=== PATIENT | male | born 1960 | race Caucasian/White ===

== ENCOUNTER 2024-07-20 21:22 | Inpatient (IN) | payer MEDICARE, MEDICAID, SELFPAY ==
[2024-07-20 21:26] VITALS: BP 136/80; PULSE 112; RESP 22; TEMP 38.4; O2SAT 92
[2024-07-20 21:30] VITALS: BP 127/89; PULSE 103; RESP 28; TEMP 36.7; O2SAT 94
--- NOTE | 2024-07-20 21:30 | EKG_ITS ---
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[id number] Requested By: Medhat Whittaker Order Number: [id number] Reading MD: Medhat Whittaker Measurements Intervals [place] Rate: 114 P: [place]: QRS: 76 QRSD: 110 T: 85 QT: 343 QTc: 474 Interpretive Statements ATRIAL FLUTTER/TACHYCARDIA WITH RAPID VENTRICULAR RESPONSE WITH ABERRANT CONDUCTION OR VENTRICULAR PREMATURE COMPLEXES NONSPECIFIC T-WAVE ABNORMALITY ABNORMAL RHYTHM ECG Compared to ECG 06/21/2024 11:38:35 Ventricular premature complex(es) now present Aberrant conduction of supraventricular beat(s) now present T-wave abnormality now present Myocardial infarct finding no longer present /store/S0/[id number]/[id number].pdf
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
--- NOTE | 2024-07-20 21:31 | XR_ITS ---
Examination: AP chest single view Technique one AP portable upright chest single view Exam date and time: July 20, 2024 10:26 PM Comparison June 17, 2024 Indications: Sepsis protocol Findings: Prominent left lung pneumonia Mild enlargement cardiac contour with moderate vascular congestion Calcified granuloma right lower lobe Impression: Significant left lung pneumonia
[2024-07-20 21:34] VITALS: BMI 37.0
[2024-07-20 22:19] LABS: Collection Type, Urine Clean Catch; Squamous Epithelial Cell,Urine 0 /hpf (0-5)
[2024-07-20 22:33] LABS: Lactate (Lactic Acid) 1.7 mMol/L (0.4-2.0)
[2024-07-20 22:37] LABS: Bacteria,Urine 1+; Bilirubin,Urine 2+ (Negative); Blood,Urine Negative (Negative); Clarity,Urine Turbid (Clear/Hazy); Color,Urine Drk-Yellow (Lt Yel-Yel); Glucose, Urine Negative (Negative); Ketones,Urine Negative (Negative); Leukocyte Esterase,Urine Negative (Negative); Nitrite,Urine Negative (Negative); PH,Urine 6.5 (5.0-7.0); Protein,Urine 1+ (Neg - Trace); RBC,Urine 3 /hpf (0-3); Specific Gravity,Urine 1.029 (1.001-1.035); WBC,Urine 3 /hpf (0-5)
[2024-07-20 22:38] LABS: Basophils # (Auto) 0.1 Thou/mm3 (0.0-0.2); Basophils % (Auto) 0 % (0-2.5); Eosinophils % (Auto) 0 % (0-10); Hemoglobin 13.9 g/dL (13.5-16.0); Immature Granulocytes % (Auto) 1 % (0-0); Immature Granulocytes Auto 0.16 Thou/mm3 (0.00-0.00); Lymphocytes # (Auto) 0.6 Thou/mm3 (1.0-4.8); Lymphocytes % (Auto) 4 % (10-50); Mean Corpuscular HGB Conc 33.1 g/dl (31.0-37.0); Mean Corpuscular Hemoglobin 26.4 pg (25.0-35.0); Mean Corpuscular Volume 80 fL (80-100); Monocytes # (Auto) 1.3 Thou/mm3 (0.0-0.8); Monocytes % (Auto) 7 % (0-12); Neutrophils # (Auto) 15.4 Thou/mm3 (1.8-7.7); Neutrophils % (Auto) 88 % (37-80); Nucleated Red Blood Cell % 0 /100 WBC (0); Platelet Count 171 Thou/mm3 (140-440); RDW Standard Deviation 46.1 fL (35.1-43.9); Red Blood Count 5.27 Miln/mm3 (4.50-5.90)
[2024-07-20 22:39] VITALS: PULSE 122; RESP 26; O2SAT 94; BMI 36.9
[2024-07-20 22:39] LABS: White Blood Count 17.6 Thou/mm3 (3.8-10.6)
[2024-07-20 22:49] LABS: INR 1.4 (0.9-1.3); Partial Thromboplastin Time 29.1 Seconds (22.0-36.0); Prothrombin Time 14.5 Seconds (9.0-12.2)
[2024-07-20 22:55] LABS: B-Type Natriuretic Peptide 424 pg/mL (0-100)
[2024-07-20 23:06] VITALS: PULSE 116; RESP 30; O2SAT 86
[2024-07-20 23:11] LABS: Alanine Aminotransferase 67 U/L (10-49); Albumin, Serum 3.6 gm/dL (3.4-4.8); Albumin/Globulin Ratio 1.4 (1.2-2.2); Alkaline Phosphatase 231 U/L (46-116); Anion Gap 7 (7-16); Aspartate Amino Transferase 87 U/L (0-34); BUN/Creatinine Ratio 32 Ratio (12-20); Bilirubin,Total 4.5 mg/dL (0.3-1.2); Blood Urea Nitrogen 29 mg/dL (9-23); Calcium 9.3 mg/dL (8.3-10.6); Calcium (Corrected) 9.6 mg/dL (8.5-10.1); Carbon Dioxide 25.9 mMol/L (20.0-31.0); Chloride 98 mMol/L (98-107); Creatinine (Component) 0.9 mg/dL (0.6-1.3); Estimated Creatinine Clearance 185.1 mL/min (>60); Globulin 2.6 gm/dL (2.3-3.5); Glucose 138 mg/dL (74-106); Lipase 39 U/L (12-53); Osmolality,Calculated 270 (275-295); Phosphorous 2.8 mg/dL (2.4-5.1); Potassium 3.8 mMol/L (3.4-5.1); Procalcitonin 1.42 ng/ml (0.0-0.49); Sodium 131 mMol/L (136-145); Total Protein 6.2 gm/dL (5.7-8.2); Troponin I 0.037 ng/mL (0.0-0.045); eGFR > 60 See Note
[2024-07-20] MEDS: cefTRIAXone/D5w 1gm IV premix 50 ML IV (23:19)
[2024-07-21] VITALS (17 sets, daily range): BP systolic 107–151; BP diastolic 62–99; PULSE 80–124; RESP 18–98; TEMP 36.7–37.6; O2SAT 90–97
[2024-07-21] MEDS: ALBUTEROL/IPRATROPIUM (Duoneb) RT SOL 3 ML NEBU INH (00:10)
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
--- NOTE | 2024-07-21 00:44 | PC.NURSE ---
since pt has been extreamly loud and demanding. Pt asking for food befor he was befor any treatment yelling EAT EAT EAT EAT PT informed that he needs to wait until we are finished treating him.. pt then startes yelling I'm starving to louder and louder for about 2 min. Pt was given sandwich, chips and juice. When he was finished he just threw his chips oand juice boxes etc on the floor.Shotrtly after pt puss ocegen out .and since has been non compliant with everything,
[2024-07-21 02:12] LABS: LDH (Lactate Dehydrogenase) 263 U/L (120-246)
[2024-07-21] MEDS: SODIUM CHLORIDE RT 10% 15 ML NEBU 5 ML INH (02:38)
[2024-07-21] MEDS: APIXABAN 2.5 MG TABLET 5 MG PO ×2 (02:49→21:34)
[2024-07-21] MEDS: AZITHROMYCIN 250 MG TABLET 500 MG PO (02:50)
--- NOTE | 2024-07-21 02:52 | PC.RT ---
Sputum culture collected and sent to lab.
[2024-07-21] MEDS: PIPER/TAZO 3.375 GM 3.375 GM/50 ML BAG IV ×3 (04:30→21:37)
[2024-07-21 04:45] LABS: Basophils # (Auto) 0.1 Thou/mm3 (0.0-0.2); Basophils % (Auto) 0 % (0-2.5); Eosinophils % (Auto) 0 % (0-10); Hematocrit 41.5 % (41.0-53.0); Hemoglobin 13.1 g/dL (13.5-16.0); Immature Granulocytes % (Auto) 1 % (0-0); Immature Granulocytes Auto 0.18 Thou/mm3 (0.00-0.00); Lymphocytes # (Auto) 0.9 Thou/mm3 (1.0-4.8); Lymphocytes % (Auto) 5 % (10-50); Mean Corpuscular HGB Conc 31.6 g/dl (31.0-37.0); Mean Corpuscular Hemoglobin 25.9 pg (25.0-35.0); Mean Corpuscular Volume 82 fL (80-100); Monocytes # (Auto) 1.5 Thou/mm3 (0.0-0.8); Monocytes % (Auto) 9 % (0-12); Neutrophils # (Auto) 14.3 Thou/mm3 (1.8-7.7); Neutrophils % (Auto) 84 % (37-80); Nucleated Red Blood Cell % 0 /100 WBC (0); Platelet Count 176 Thou/mm3 (140-440); RDW Standard Deviation 47.8 fL (35.1-43.9); Red Blood Count 5.06 Miln/mm3 (4.50-5.90)
[2024-07-21] MEDS: AMIODARONE HCL 200 MG TABLET PO ×2 (04:55→21:50)
[2024-07-21 05:14] LABS: Alanine Aminotransferase 62 U/L (10-49); Albumin, Serum 3.4 gm/dL (3.4-4.8); Albumin/Globulin Ratio 1.4 (1.2-2.2); Alkaline Phosphatase 222 U/L (46-116); Anion Gap 6 (7-16); Aspartate Amino Transferase 69 U/L (0-34); BUN/Creatinine Ratio 28 Ratio (12-20); Blood Urea Nitrogen 25 mg/dL (9-23); Calcium 8.9 mg/dL (8.3-10.6); Calcium (Corrected) 9.4 mg/dL (8.5-10.1); Carbon Dioxide 28.2 mMol/L (20.0-31.0); Chloride 97 mMol/L (98-107); Cholesterol 73 mg/dL (132-200); Creatinine (Component) 0.9 mg/dL (0.6-1.3); Estimated Creatinine Clearance 185.1 mL/min (>60); Globulin 2.5 gm/dL (2.3-3.5); Glucose 168 mg/dL (74-106); Magnesium 1.8 mg/dL (1.6-2.6); Osmolality,Calculated 271 (275-295); Potassium 3.8 mMol/L (3.4-5.1); Sodium 131 mMol/L (136-145); Total Protein 5.9 gm/dL (5.7-8.2); Triglycerides 99 mg/dL (30-150); eGFR > 60 See Note
[2024-07-21 05:15] LABS: Bilirubin,Total 3.3 mg/dL (0.3-1.2); Cardiac Risk Estimate 5.6 RATIO (4.0-6.7); HDL Cholesterol 13 mg/dL (40-60); LDL Cholesterol,Calculated 40 mg/dL (0-130)
[2024-07-21] MEDS: DOXYCYCLINE INJ 100 MG in SODIUM CHLORIDE 0.9% (P) 100 ML IV ×2 (07:07→21:35)
[2024-07-21] MEDS: INSULIN LISPRO (AdmeLOG) 1 UNIT/0.01 ML UNIT SC (07:45)
--- NOTE | 2024-07-21 08:04 | PC.NURSE ---
pt will not stay in bed. Pt does not leave chest leads on. Pt is compliant at first and then removes o2 sat, b/p cuff, leads, spits in room, and urinated on floor. Pt asked to not do these things, and then he does them again.
[2024-07-21] MEDS: FOLIC ACID 1 MG TABLET PO ×2 (08:27→21:34)
[2024-07-21] MEDS: FUROSEMIDE INJ 10 MG/ML 4ML VIAL 40 MG IV (08:27)
[2024-07-21] MEDS: TAMSULOSIN HCL 0.4 MG CAPSULE PO (08:28)
[2024-07-21] MEDS: THIAMINE 100 MG TABLET PO ×2 (08:28→21:35)
[2024-07-21] MEDS: SACUBITRIL 24 MG/VALSARTAN 26 MG TABLET 1 TAB PO ×2 (08:28→21:35)
[2024-07-21] MEDS: PANTOPRAZOLE INJ 40 MG VIAL IVP (08:28)
--- NOTE | 2024-07-21 10:10 | XR_ITS ---
Examination: Abdomen sonogram, Limited Date and time of exam: July 21, 2024 at 1307 hours INDICATIONS: Elevated liver enzymes on laboratory examination July 20, 2024 Technique: Real-time brunner scale transabdominal sonographic images of the upper abdomen obtained. Findings: Negative for gallstones Gallbladder wall is thickened 0.9 cm with edema Common bile duct 0.4 cm Pancreatic head 3.0 cm Liver 19.0 cm irregular contour no focal liver lesions Normal hepatopedal portal venous flow Patent IVC IMPRESSION: Acute acalculous cholecystitis, consider HIDA scan or MRCP follow-up for confirmation Moderate hepatomegaly
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
[2024-07-21 11:41] LABS: Hepatitis A Antibody IgM Non Reactive (Non React); Hepatitis B Core Antibody IgM Non Reactive (Non React); Hepatitis B Surface Antigen Non Reactive (Non React); Hepatitis C Antibody Reactive (Non React)
[2024-07-21] MEDS: DAPAGLIFLOZIN PROPANEDIOL 5 MG TABLET 10 MG PO (12:10)
[2024-07-21] MEDS: POTASSIUM CHLORIDE 20 mEq TABCR PO (14:40)
[2024-07-21] MEDS: Magnesium Sulfate 4 GM Ivpb 4 GM/50 ML BAG IV (15:43)
[2024-07-21] MEDS: BUMETANIDE INJ 20 MG in CONTAINER,EMPTY 50 ML 1 BAG 4 MG IV (17:00)
[2024-07-21] MEDS: ACETAMINOPHEN 325 MG TABLET 650 MG PO (19:50)
[2024-07-22] VITALS (11 sets, daily range): BP systolic 92–118; BP diastolic 62–84; PULSE 91–153; RESP 17–96; TEMP 36.1–36.8; O2SAT 92–95; BMI 37.5
--- NOTE | 2024-07-22 | PC.NURSE ---
patient refusing to wear tele, oxygen monitor, and oxygen
[2024-07-22] MEDS: LORazepam 0.5 MG TABLET 2 MG PO (00:17)
--- NOTE | 2024-07-22 00:32 | PC.NURSE ---
unable to do med recs, patient unsure of the names of his medications.
--- NOTE | 2024-07-22 04:57 | PC.NURSE ---
patient refusing to wear tele, oxygen monitor, and oxygen
--- NOTE | 2024-07-22 04:57 | PC.NURSE ---
patient continues to urinate on the floor. patient not compliant with strict juliano. patient spitting on the floor. patient educated to use blue bag and urinate into urinal.
[2024-07-22] MEDS: PIPER/TAZO 3.375 GM 3.375 GM/50 ML BAG IV ×3 (05:23→21:19)
[2024-07-22 05:49] LABS: Basophils # (Auto) 0.1 Thou/mm3 (0.0-0.2); Basophils % (Auto) 1 % (0-2.5); Eosinophils # (Auto) 0.2 Thou/mm3 (0.0-0.5); Eosinophils % (Auto) 2 % (0-10); Hematocrit 45.3 % (41.0-53.0); Hemoglobin 14.6 g/dL (13.5-16.0); Immature Granulocytes % (Auto) 2 % (0-0); Immature Granulocytes Auto 0.25 Thou/mm3 (0.00-0.00); Lymphocytes % (Auto) 9 % (10-50); Mean Corpuscular HGB Conc 32.2 g/dl (31.0-37.0); Mean Corpuscular Hemoglobin 25.8 pg (25.0-35.0); Mean Corpuscular Volume 80 fL (80-100); Monocytes # (Auto) 1.4 Thou/mm3 (0.0-0.8); Monocytes % (Auto) 13 % (0-12); Neutrophils # (Auto) 7.8 Thou/mm3 (1.8-7.7); Neutrophils % (Auto) 73 % (37-80); Nucleated Red Blood Cell % 0 /100 WBC (0); Platelet Count 240 Thou/mm3 (140-440); RDW Standard Deviation 46.6 fL (35.1-43.9); Red Blood Count 5.65 Miln/mm3 (4.50-5.90); White Blood Count 10.7 Thou/mm3 (3.8-10.6)
[2024-07-22 06:12] LABS: INR 1.3 (0.9-1.3); Prothrombin Time 14.4 Seconds (9.0-12.2)
[2024-07-22 06:25] LABS: Alanine Aminotransferase 52 U/L (10-49); Albumin, Serum 3.6 gm/dL (3.4-4.8); Albumin/Globulin Ratio 1.2 (1.2-2.2); Alkaline Phosphatase 207 U/L (46-116); Anion Gap 8 (7-16); Aspartate Amino Transferase 46 U/L (0-34); BUN/Creatinine Ratio 21 Ratio (12-20); Blood Urea Nitrogen 19 mg/dL (9-23); Calcium (Corrected) 9.3 mg/dL (8.5-10.1); Carbon Dioxide 35.8 mMol/L (20.0-31.0); Chloride 94 mMol/L (98-107); Creatinine (Component) 0.9 mg/dL (0.6-1.3); Estimated Creatinine Clearance 115.3 mL/min (>60); Globulin 2.9 gm/dL (2.3-3.5); Glucose 146 mg/dL (74-106); Magnesium 1.6 mg/dL (1.6-2.6); Osmolality,Calculated 280 (275-295); Phosphorous 3.8 mg/dL (2.4-5.1); Potassium 2.8 mMol/L (3.4-5.1); Sodium 138 mMol/L (136-145); Total Protein 6.5 gm/dL (5.7-8.2); eGFR > 60 See Note
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
[2024-07-22] MEDS: POTASSIUM CHLORIDE 20 mEq TABCR 40 MEQ PO (07:57)
[2024-07-22] MEDS: INSULIN LISPRO (AdmeLOG) 1 UNIT/0.01 ML UNIT SC ×4 (07:57→20:20)
[2024-07-22] MEDS: POTASSIUM CHL 10 mEq IVPB 10 MEQ/100 ML BAG 50 MEQ IV ×2 (07:58→12:32)
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
[2024-07-22] MEDS: THIAMINE 100 MG TABLET PO ×2 (09:20→20:18)
[2024-07-22] MEDS: FOLIC ACID 1 MG TABLET PO ×2 (09:20→20:18)
[2024-07-22] MEDS: APIXABAN 2.5 MG TABLET 5 MG PO ×2 (09:20→21:19)
[2024-07-22] MEDS: PANTOPRAZOLE INJ 40 MG VIAL IVP (09:20)
[2024-07-22] MEDS: ALBUMIN HUMAN 25% IVPB 25 GM/100 ML BTL IV (09:20)
[2024-07-22] MEDS: DAPAGLIFLOZIN PROPANEDIOL 5 MG TABLET 10 MG PO (09:20)
[2024-07-22] MEDS: TAMSULOSIN HCL 0.4 MG CAPSULE PO (09:20)
[2024-07-22] MEDS: SACUBITRIL 24 MG/VALSARTAN 26 MG TABLET 1 TAB PO ×2 (09:21→20:18)
[2024-07-22] MEDS: AMIODARONE HCL 200 MG TABLET PO ×2 (09:21→20:18)
[2024-07-22] MEDS: DOXYCYCLINE INJ 100 MG in SODIUM CHLORIDE 0.9% (P) 100 ML IV ×2 (10:04→20:19)
[2024-07-22] MEDS: POTASSIUM CHL 10 mEq IVPB 10 MEQ/100 ML BAG 75 MEQ IV (10:05)
--- NOTE | 2024-07-22 10:30 | PC.SS ---
SS met with patient at bedside to complete initial assessment, however patient informed SS to return. Patient possibly might leave AMA, informed SS his daughter will provide transportation.
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
--- NOTE | 2024-07-22 14:16 | XR_ITS ---
Examination: Abdomen sonogram, Limited Date and time of exam: July 22, 2024 0821 hours INDICATIONS: Cirrhosis, increasing ascites and abdominal distention this week Technique: Real-time brunner scale transabdominal sonographic images of the upper abdomen obtained. Findings: Minimal ascitic fluid IMPRESSION: Minimal ascitic fluid
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
[2024-07-22] MEDS: BUMETANIDE INJ 0.25 MG/ML VIAL 4 ML 2 MG IVP (20:19)
[2024-07-22] MEDS: LORazepam 0.5 MG TABLET PO (21:58)
[2024-07-23] VITALS (7 sets, daily range): BP systolic 94–122; BP diastolic 67–100; PULSE 93–116; RESP 17–92; TEMP 36.2–36.7; O2SAT 91–94; BMI 35.4
[2024-07-23] MEDS: LORazepam 0.5 MG TABLET PO (03:47)
[2024-07-23] MEDS: PIPER/TAZO 3.375 GM 3.375 GM/50 ML BAG IV (05:23)
[2024-07-23 05:49] LABS: Basophils % (Auto) 0 % (0-2.5); Eosinophils # (Auto) 0.3 Thou/mm3 (0.0-0.5); Eosinophils % (Auto) 3 % (0-10); Hematocrit 43.9 % (41.0-53.0); Immature Granulocytes % (Auto) 4 % (0-0); Immature Granulocytes Auto 0.39 Thou/mm3 (0.00-0.00); Lymphocytes # (Auto) 1.3 Thou/mm3 (1.0-4.8); Lymphocytes % (Auto) 14 % (10-50); Mean Corpuscular HGB Conc 31.9 g/dl (31.0-37.0); Mean Corpuscular Hemoglobin 25.9 pg (25.0-35.0); Mean Corpuscular Volume 81 fL (80-100); Monocytes % (Auto) 11 % (0-12); Neutrophils # (Auto) 6.6 Thou/mm3 (1.8-7.7); Neutrophils % (Auto) 69 % (37-80); Nucleated Red Blood Cell % 0 /100 WBC (0); Platelet Count 264 Thou/mm3 (140-440); RDW Standard Deviation 47.6 fL (35.1-43.9); White Blood Count 9.7 Thou/mm3 (3.8-10.6)
[2024-07-23 06:22] LABS: Alanine Aminotransferase 47 U/L (10-49); Albumin, Serum 3.6 gm/dL (3.4-4.8); Albumin/Globulin Ratio 1.3 (1.2-2.2); Alkaline Phosphatase 206 U/L (46-116); Anion Gap 7 (7-16); Aspartate Amino Transferase 52 U/L (0-34); BUN/Creatinine Ratio 20 Ratio (12-20); Bilirubin,Total 2.1 mg/dL (0.3-1.2); Blood Urea Nitrogen 20 mg/dL (9-23); Calcium 8.7 mg/dL (8.3-10.6); Chloride 92 mMol/L (98-107); Estimated Creatinine Clearance 100.4 mL/min (>60); Globulin 2.8 gm/dL (2.3-3.5); Glucose 188 mg/dL (74-106); Magnesium 1.4 mg/dL (1.6-2.6); Osmolality,Calculated 279 (275-295); Phosphorous 4.1 mg/dL (2.4-5.1); Sodium 136 mMol/L (136-145); Total Protein 6.4 gm/dL (5.7-8.2); eGFR > 60 See Note
[2024-07-23] MEDS: INSULIN LISPRO (AdmeLOG) 1 UNIT/0.01 ML UNIT SC (07:54)
[2024-07-23] MEDS: DAPAGLIFLOZIN PROPANEDIOL 5 MG TABLET 10 MG PO (08:12)
[2024-07-23] MEDS: BUMETANIDE INJ 0.25 MG/ML VIAL 4 ML 2 MG IVP (08:13)
[2024-07-23] MEDS: PANTOPRAZOLE INJ 40 MG VIAL IVP (08:13)
[2024-07-23] MEDS: AMIODARONE HCL 200 MG TABLET PO (08:13)
[2024-07-23] MEDS: FOLIC ACID 1 MG TABLET PO (08:13)
[2024-07-23] MEDS: SACUBITRIL 24 MG/VALSARTAN 26 MG TABLET 1 TAB PO (08:13)
[2024-07-23] MEDS: THIAMINE 100 MG TABLET PO (08:14)
[2024-07-23] MEDS: TAMSULOSIN HCL 0.4 MG CAPSULE PO (08:14)
[2024-07-23] MEDS: DOXYCYCLINE INJ 100 MG in SODIUM CHLORIDE 0.9% (P) 100 ML IV (08:14)
[2024-07-23] MEDS: LORazepam 0.5 MG TABLET 1 MG PO (08:32)
[2024-07-23] MEDS: POTASSIUM CHLORIDE 20 mEq TABCR 40 MEQ PO (09:50)
[2024-07-23] MEDS: Magnesium Sulfate 4 GM Ivpb 4 GM/50 ML BAG IV (09:50)
[2024-07-23] MEDS: APIXABAN 2.5 MG TABLET 5 MG PO (09:50)
[2024-07-23] MEDS: ALBUMIN HUMAN 25% IVPB 25 GM/100 ML BTL IV (09:51)
--- NOTE | 2024-07-23 10:18 | PD.IMPROG ---
Documentation for date of: 07/23/24 Subjective Subjective Interval history: pt comfortable aflutter HR 110 on eliquis continue antifailure meds Exam Vital Signs Temp Pulse Resp BP Pulse Ox O2 Del Method O2 Flow Rate 98.0 F 114 H 19 122/100 H 91 L Room Air 4 07/23/24 08:00 07/23/24 08:13 07/23/24 08:00 07/23/24 08:13 07/23/24 08:00 07/23/24 08:00 07/22/24 16:00 Routine HEENT Exam Head: Present normocephalic and atraumatic Eye: Present EOMI and PERRL ENT: Present mucous membranes moist Routine Neck Exam Neck: Present supple and trachea midline Routine Respiratory Exam Respiratory: Present chest non-tender, lungs clear, normal breath sounds and no resp distress Routine Cardiovascular Exam Cardiovascular: Present RRR Routine Abdominal Exam Abdominal: Present soft and normoactive bowel sounds Routine Extremities Exam Extremities: Present full ROM Routine Skin Exam Skin: Present intact, dry and warm Routine Neurological Exam Neurological: Present alert, oriented X3 and CN II-XII intact Routine Psychiatric Exam Psychiatric: Present normal affect and normal thought process Objective Labs 07/23/24 05:00 07/23/24 05:00 Labs: Laboratory Results - last 24 hr 07/23/24 05:00 WBC 9.7 RBC 5.40 Hgb 14.0 Hct 43.9 MCV 81 MCH 25.9 MCHC 31.9 RDW Std Deviation 47.6 H Plt Count 264 Neut % (Auto) 69 Lymph % (Auto) 14 [place] % (Auto) 11 Eos % (Auto) 3 Baso % (Auto) 0 Neut # (Auto) 6.6 Lymph # (Auto) 1.3 [place] # (Auto) 1.0 H Eos # (Auto) 0.3 Baso # (Auto) 0.0 Immature Gran # (Auto) 0.39 H Absolute Nucleated RBC 0.00 Immature Gran % 4 H Nucleated RBC % 0 Sodium 136 Potassium 3.0 L Chloride 92 L Carbon Dioxide 37.0 H Anion Gap 7 BUN 20 Creatinine 1.0 Estim Creat Clear Calc 100.4 eGFR > 60 BUN/Creatinine Ratio 20 Glucose 188 H Calculated Osmolality 279 Calcium 8.7 Corrected Calcium 9.0 Phosphorus 4.1 Magnesium 1.4 L Total Bilirubin 2.1 H D AST 52 H ALT 47 Alkaline Phosphatase 206 H Total Protein 6.4 Albumin 3.6 Globulin 2.8 Albumin/Globulin Ratio 1.3 Assessment & Plan A&P Narrative EKG shows aflutter pt was diuresed currently on entristo agree with treatment continue anticoagulation Time Spent With Patient Time: Total time spent is greater than 50% in coordination of care (as documented) at patient's floor/unit and/or counseling patient:
--- NOTE | 2024-07-23 11:39 | PC.SS ---
Initial assessment: This is 64 year old male admitted for sepsis due pneumonia. Patient appeared alert and oriented. Patient confirmed demographic information. Patient informs he lives at home, alone. Patient identified his brother, Rui Henderson as his alternate medical surrogate decision maker. Patient describes to be independent with ADL's. Patient denies DME use at home. Patient's PCP is Dr. Bandar Gleason. Pharmacy of choice is [facility]. The discharge plan was discussed, and the patient would like to return home once medically cleared. Patient informs he will get his own transportation home. marine services technician to remain available to address further needs. D/c plan: home Next of kin: brothRui bourgeois
--- NOTE | 2024-07-23 11:43 | PC.SS ---
SS update: met at bed side with patient as bed side nurse stated patient wanted to leave AMA. Attending Dr. Lugo present to speak with the patient. Patient informed he was agreeable to stay another night. Patient receiving IV diereses.
--- NOTE | 2024-07-23 12:36 | EVENTNT_ITS ---
Documentation for date of: 07/23/24 Event Note Event Note: Patient has expressed desire to leave today AGAINST MEDICAL ADVICE, all risks were discussed with the patient again however he is reluctant to stay. He is alert and oriented x 3 and is able to make decisions. Given current cir cumstances he was prescribed levofloxacin and Lasix outpatient and was strongly advised to follow-up with his primary care physician or return to the emergency room if his condition worsen. Plan of care discussed with attending Dr. Stevens. Jose Matos MD, PGY 2. Disclaimer: This note was dictated by speech recognition. Minor errors in specialty development consultant may be present due to voice recognition software. Attending physician note: Patient decided to sign out AGAINST MEDICAL ADVICE. Risk for noncompliance discussed. Staff at bedside. Patient is alert and oriented x 3.
--- NOTE | 2024-07-23 14:04 | PC.NURSE ---
Pt. left AMA at 1235 MD came and explained the R/B of AMA. Pt. verbalized understanding of the risks and benefits and wanted to leave no matter what. IV's were removed from the patient and patient left the building without issue.
== END 2024-07-23 12:35 | disposition left against medical advice (07) | DRG 871 ==
LOC: SERX 07-21 00:04 → SERHOLD 07-21 01:34 → S2NX 07-21 23:20
PROVIDERS: Registered Nurse General Practice; Student in an Organized Health Care Education/Training Program; Admitting Provider Student in an Organized Health Care Education/Training Program; Emergency Provider Emergency Medicine; PCP Physician Assistant; Visit Provider Internal Medicine
DX: A41.9 Sepsis, unspecified organism (principal); I50.23 Acute on chronic systolic (congestive) heart failure; J18.9 Pneumonia, unspecified organism; I48.92 Unspecified atrial flutter; N40.0 Benign prostatic hyperplasia without lower urinary tract symptoms; I11.0 Hypertensive heart disease with heart failure; K21.9 Gastro-esophageal reflux disease without esophagitis; E11.9 Type 2 diabetes mellitus without complications; F15.10 Other stimulant abuse, uncomplicated; F12.10 Cannabis abuse, uncomplicated; E66.01 Morbid (severe) obesity due to excess calories; I48.91 Unspecified atrial fibrillation; Z68.35 Body mass index [BMI] 35.0-35.9, adult; I27.20 Pulmonary hypertension, unspecified; F10.20 Alcohol dependence, uncomplicated; Z53.29 Procedure and treatment not carried out because of patient's decision for other reasons; Z91.148 Patient's other noncompliance with medication regimen for other reason; Z79.899 Other long term (current) drug therapy; Z88.0 Allergy status to penicillin
CPT/HCPCS: 36415; 70450; 71045; 76705; 80053; 80061; 80074; 81001; 82042; 82150; 82945; 83605; 83615; 83690; 83735; 83880; 84100; 84145; 84157; 84484; 85025; 85610; 85730; 87040; 87081; 87086; 87186; 87205; 87400; 87811; 89051; 89220; 92526; 93005; 94640; 94664; 94762; 96365; 96366; 96367; 96372; 99285; A9270; J0696; J1815; J1940; J2470; J2543; J3475; J3480; J3490; J8499; P9047

== ENCOUNTER → 2025-01-08 | Outpatient (CLI) | payer MEDICARE, SELFPAY | END | disposition home or self-care (01) | LOC: SLDO 16:30 | PROVIDERS: PCP Surgery; Referring Provider Surgery; Visit Provider Surgery | DX: E11.622 Type 2 diabetes mellitus with other skin ulcer (principal) | CPT/HCPCS: 87070; 87075; 87077; 87186; 87205 ==

== ENCOUNTER → 2025-01-08 | Outpatient (CLI) | payer MEDICARE, SELFPAY | END | disposition home or self-care (01) | PROVIDERS: PCP Physician Assistant; Referring Provider Physician Assistant; Visit Provider Surgery | DX: I96 Gangrene, not elsewhere classified (principal); S91.104A Unspecified open wound of right lesser toe(s) without damage to nail, initial encounter; S61.203A Unspecified open wound of left middle finger without damage to nail, initial encounter; S91.105A Unspecified open wound of left lesser toe(s) without damage to nail, initial encounter; S81.802A Unspecified open wound, left lower leg, initial encounter; S81.801A Unspecified open wound, right lower leg, initial encounter; X58.XXXA Exposure to other specified factors, initial encounter; L85.3 Xerosis cutis; I10 Essential (primary) hypertension; M06.9 Rheumatoid arthritis, unspecified; Z79.84 Long term (current) use of oral hypoglycemic drugs; E11.69 Type 2 diabetes mellitus with other specified complication | CPT/HCPCS: 11042; 99215; A9270; G0463 ==

== ENCOUNTER 2025-07-01 12:51 | Emergency (ER) | payer OTHER, SELFPAY ==
[2025-07-01 12:54] VITALS: BP 131/75; PULSE 90; RESP 18; TEMP 37.6; O2SAT 93
[2025-07-01 12:57] VITALS: PULSE 94; RESP 20; O2SAT 97
[2025-07-01 13:06] VITALS: BMI 37.3
--- NOTE | 2025-07-01 13:08 | EKG_ITS ---
[facility] Test Date: 2025-07-01 Pat Name: HYACINTH TORIBIO Department: Room: - Gender: Male Clearance Rep: : 1960 Requested By: Cony Kyle Order Number: [id number] Reading MD: Cony Kyle Measurements Intervals [place] Rate: 80 P: [place]: QRS: 43 QRSD: 102 T: 78 QT: 402 QTc: 467 Interpretive Statements ATRIAL FLUTTER/TACHYCARDIA LOW QRS VOLTAGE IN PRECORDIAL LEADS [QRS DEFLECTION < 1.0 mV IN CHEST LEADS] POSSIBLE ANTERIOR MYOCARDIAL INFARCTION , PROBABLY OLD [30 ms Q WAVE IN V3/V4, OR R < 0.2 mV IN V4] ABNORMAL RHYTHM ECG Compared to ECG 07/20/2024 21:43:06 Low QRS voltage now present Myocardial infarct finding now present Ventricular premature complex(es) no longer present Aberrant conduction of supraventricular beat(s) no longer present T-wave abnormality no longer present /store/S0/[id number]/[id number].pdf
--- NOTE | 2025-07-01 13:09 | XR_ITS ---
Examination: Venous duplex lower extremity sonogram, bilateral. Date and time of exam: 07/01/2025 at 1:39 p.m. INDICATION: Bilateral leg pain and swelling for 3 days COMPARISON: None Technique: Multiple sonographic images of the deep venous system have been obtained. B-mode/2-D grayscale imaging of vascular structures and Doppler spectral analysis (waveforms) and color performed Both legs are examined. Findings: Deep venous systems do not demonstrate abnormal echogenicity. All visualized deep veins exhibit compressibility. All visualized deep veins exhibit augmentation. Subcutaneous edema identified in the calves, greater on the right. Impression: Negative for deep vein thrombosis in either lower extremity.
--- NOTE | 2025-07-01 13:09 | PD.EDLOWEX ---
Lower Extremity Injury RME/HPI General Chief Complaint: Extremity Injury, Lower Stated Complaint: LEG PAIN Time Seen by Provider: 07/01/25 13:03 Arrival date/time: 07/01/25 12:51 65-year-old male patient, homeless, with significant history of diabetes mellitus hypertension, chronic A-fib, congestive heart failure, came in for evaluation regarding complaints of bilateral lower leg pain and swelling. Patient was recently discharged from [facility] about 3 to 4 days ago, and called EMS due to bilateral lower leg swelling and pain. Patient is ambulatory according to EMS for transfer with a walker. Patient denies any fall denies any trauma to the legs. Patient also complaining of chronic back pain. Patient told me that he ran out of Cod[place] lately. Denies any other complaints except for chronic cough. Denies any chest pain denies any fever. Related Data Home Medications ?Medication ?Instructions ?Recorded ?Confirmed dutasteride 0.5 mg capsule 0.5 mg PO QDAY #0 caps 06/24/14 06/18/24 (Avodart) metformin 500 mg tablet 1,000 mg PO BIDAC #0 tabs 06/24/14 06/18/24 (Glucophage) tamsulosin 0.4 mg capsule (Flomax) 0.8 mg PO HS ##0 04/27/15 06/18/24 zolpidem 10 mg tablet (Ambien) 10 mg PO HS PRN INSOMNIA #0 tabs 01/04/16 06/18/24 baclofen 20 mg tablet 20 mg PO BID 06/18/24 06/18/24 cetirizine 10 mg tablet 10 mg PO QDAY 06/18/24 06/18/24 loperamide 2 mg capsule (Imodium 2 mg PO DAILY PRN Loose Stool 06/18/24 06/18/24 A-D) magnesium oxide 200 mg PO QDAY 06/18/24 06/18/24 Previous Rx's ?Medication ?Instructions ?Recorded apixaban 5 mg tablet (Eliquis) 5 mg PO BID #30 tabs 06/22/24 dapagliflozin propanediol 10 mg 10 mg PO QDAY #30 tabs 06/22/24 tablet (Farxiga) furosemide 40 mg tablet 40 mg PO BID #60 tabs 07/23/24 doxycycline monohydrate 100 mg 100 mg PO BID #14 caps 07/01/25 capsule furosemide 40 mg tablet (Lasix) 40 mg PO QAM #20 tabs 07/01/25 potassium chloride 20 mEq 20 meq PO QDAY #20 tabs 07/01/25 tablet,extended release(part/cryst) Allergies Allergy/AdvReac Type Severity Reaction Status Date / Time ketorolac (From Toradol) Allergy Severe Anaphylaxis Verified 07/01/25 13:04 cefazolin Allergy Mild Rash/Urtica Verified 07/01/25 13:04 alfa Penicillins Allergy Unknown RASH Verified 07/01/25 13:04 Review of Systems Review of Systems Narrative Review of Systems: Review of system reviewed and within normal limits except mentioned in HPI ED Exam Narrative Physical exam: VITAL SIGNS: Reviewed. GENERAL APPEARANCE: Alert and interactive, follows commands, no acute distress, HEAD AND FACE: Non-traumatic. ENT: PERRL, pink conjunctivitis, eyelid no trauma, Mucous membrane moist. NECK: Supple, nontender, no nuchal rigidity. CHEST: No tenderness, no crepitus, no paradoxical movement, no retractions. LUNGS: Clear, well ventilated, symmetric, no rales, no wheezing, no ronchi, no stridor, good breath sounds bilaterally. HEART: Regular rate, regular rhythm, no murmur, no gallops. ABDOMEN: Soft, positive bowel sounds, nondistended, no guarding, nontender, no rebound, no masses, RECTAL: Deferred. GENITAL: Deferred. NEUROLOGICAL: Gross motor function intact sensory function intact, Appropriate for age. MUSCULOSKELETAL: low back nontender, full range of motion. EXTREMITIES: Bilateral lower extremity +2 edema, no redness noted with tenderness no deformity no crepitus, full range of motion. Distal neurovascular status intact bilateral lower extremity SKIN: Color pink, dry, no rash, no lacerations, no abrasions, no contusions. LYMPHATICS: Deferred. Course Quality Measures none Orders Category Date Time Status EKG (ED ONLY) *Do not use* NOW Care 07/01/25 13:08 Completed EKG (ED Only) Stat Exams 07/01/25 13:08 Draft US venous doppler LE BI Stat Exams 07/01/25 13:09 Completed BNP [B-Type Natriuretic Peptide] Stat Lab 07/01/25 14:12 Completed CBC [CBC] Stat Lab 07/01/25 14:12 Completed CMP [Comprehensive Metabolic Panel] Stat Lab 07/01/25 14:12 Completed UA, C/S IF [Urinalysis, C/S if Indicated] Stat Lab 07/01/25 13:08 Ordered Doxycycline [Vibramycin] Med 07/01/25 17:27 Discontinued 100 mg PO X1 ONE Furosemide [Lasix] Med 07/01/25 13:07 Discontinued 40 mg PO X1 ONE HYDROcodone*/APAP 5/325 [[place] 5/325] Med 07/01/25 13:11 Discontinued 1 tab PO X1 ONE HYDROcodone*/APAP 5/325 [[place] 5/325] Med 07/01/25 17:27 Discontinued 1 tab PO X1 ONE Vital Signs Vital signs: Vital Signs Temperature 99.6 F 07/01/25 12:54 Pulse Rate 90 07/01/25 12:54 Respiratory Rate 18 07/01/25 12:54 Blood Pressure 131/75 H 07/01/25 12:54 Pulse Oximetry (%) 93 L 07/01/25 12:54 Oxygen Delivery Method Room Air 07/01/25 12:54 Extremity Injury, Lower MDM Narrative MDM Narrative:: 65-year-old male patient, homeless, with significant history of diabetes mellitus hypertension, chronic A-fib, congestive heart failure, came in for evaluation regarding complaints of bilateral lower leg pain and swelling. Patient was recently discharged from [facility] about 3 to 4 days ago, and called EMS due to bilateral lower leg swelling and pain. Patient is ambulatory according to EMS for transfer with a walker. Patient denies any fall denies any trauma to the legs. Patient also complaining of chronic back pain. Patient told me that he ran out of LasEVOFEM lately. Denies any other complaints except for chronic cough. Denies any chest pain denies any fever. Patient's workup today all came back unremarkable. Patient was given Lasix, [place], and doxycycline. Ultrasound of bilateral lower extremity negative for DVT Stable for discharge home Patient data External records reviewed:: None Clinical information provided by:: patient Social determinants that could affect healthcare access:: none Patient has the following chronic illnesses:: History of congestive heart failure, hypertension How is presenting disease/condition affected by chronic disease/condition?: exacerbated by Evaluation data The following diagnostics were reviewed and interpreted by me:: lab results and radiology exam(s) Lab and/or radiology exams considered but not ordered:: None Interpretation Summary: See MDM Medications / Prescriptions Medications or Prescriptions considered but not ordered:: None Medication administrations:: Medication Administration History Discontinued Medications Hydrocodone Bitart/Acetaminophen (Hydrocodone/Apap 5/325 Tablet) 1 tab PO X1 ONE Stop: 07/01/25 13:12 Last Admin: 07/01/25 14:57 Dose: 1 tab Documented By: Hydrocodone Bitart/Acetaminophen (Hydrocodone/Apap 5/325 Tablet) 1 tab PO X1 ONE Stop: 07/01/25 17:28 Doxycycline Hyclate (Doxycycline 100 Mg Tablet) 100 mg PO X1 ONE Stop: 07/01/25 17:28 Furosemide (Furosemide 40 Mg Tablet) 40 mg PO X1 ONE Stop: 07/01/25 13:08 Last Admin: 07/01/25 14:58 Dose: 40 mg Documented By: Adrian Aponte Consultations Consultation(s) initiated? (list below): No Diagnosis Extremity Injury, Lower Differential Diagnosis: other (Leg swelling, cellulitis leg, DVT) Most likely diagnosis given after review of the tests above:: Leg swelling, cellulitis Admission Indicated Admission indicated?: not indicated Admission Request Was there a request for admission?: No Disposition Plan Disposition Plan: Discharge Discharge Attestation Discharge Attestation: The patient was given an opportunity to ask questions and understood the discharge instructions. Discharge instructions specifically effects, indications for sooner follow up or return to the emergency department, and the expected course of current diagnosis. Patient condition: Stable Discharge Plan Plan Patient Disposition: HOME (Self Care) Discharge Disposition comment: Stable Prescriptions/Referrals Prescriptions/Med Rec: New doxycycline monohydrate 100 mg capsule 100 mg PO BID Qty: 14 0RF furosemide [Lasix] 40 mg tablet 40 mg PO QAM Qty: 20 0RF potassium chloride 20 mEq tablet,ER particles/crystals 20 meq PO QDAY Qty: 20 0RF No Action metformin [Glucophage] 500 MG tablet 1,000 mg PO BIDAC Qty: 0 dutasteride [Avodart] 0.5 MG capsule 0.5 mg PO QDAY Qty: 0 tamsulosin [Flomax] 0.4 MG capsule,extended release 24hr 0.8 mg PO HS Qty: 0 zolpidem [Ambien] 10 MG tablet 10 mg PO HS PRN (Reason: INSOMNIA) Qty: 0 furosemide 40 mg tablet 40 mg PO BID Qty: 60 0RF loperamide [Imodium A-D] 2 mg Capsule 2 mg PO DAILY PRN (Reason: Loose Stool) Rx Instructions: administer after each loose stool until symptoms controlled; do not exceed 8 mg per 24 hrs cetirizine 10 mg Tablet 10 mg PO QDAY baclofen 20 mg Tablet 20 mg PO BID magnesium oxide 200 mg magnesium Tablet 200 mg PO QDAY Eliquis 5 mg tablet 5 mg PO BID Qty: 30 0RF dapagliflozin propanediol [Farxiga] 10 mg tablet 10 mg PO QDAY Qty: 30 0RF Referrals: Mele Randall MD [Primary Care Provider, Family Practice] - In 1 week Problem List Clinical Impression: Leg swelling, Cellulitis of leg Patient/Caregiver Discharge Instructions Additional Instructions: Thank you for the opportunity for serving you today. You are stable for discharged . You are advised to: Follow-up with your PCP in 1 to 2 days Return to ED for worsening of symptoms Elevate your legs as needed Take medication as prescribed Print Language: Iraqi Stand Alone Forms: Raquel Award Info., Patient Portal Info Letter PA/ELISE Supervising Physician NAV/ELISE Supervising Physician: MD Eli
[2025-07-01 14:42] LABS: Basophils # (Auto) 0.1 Thou/mm3 (0.0-0.2); Basophils % (Auto) 1 % (0-2.5); Eosinophils # (Auto) 0.3 Thou/mm3 (0.0-0.5); Eosinophils % (Auto) 3 % (0-10); Hematocrit 37.7 % (41.0-53.0); Hemoglobin 12.7 g/dL (13.5-16.0); Immature Granulocytes Auto 0.02 Thou/mm3 (0.00-0.00); Lymphocytes # (Auto) 1.1 Thou/mm3 (1.0-4.8); Lymphocytes % (Auto) 12 % (10-50); Mean Corpuscular HGB Conc 33.7 g/dl (31.0-37.0); Mean Corpuscular Hemoglobin 29.7 pg (25.0-35.0); Mean Corpuscular Volume 88 fL (80-100); Monocytes # (Auto) 0.8 Thou/mm3 (0.0-0.8); Monocytes % (Auto) 8 % (0-12); Neutrophils # (Auto) 7.1 Thou/mm3 (1.8-7.7); Neutrophils % (Auto) 76 % (37-80); Nucleated Red Blood Cell # 0.00 Thou/mm3 (0.00-0.00); Nucleated Red Blood Cell % 0 /100 WBC (0); Platelet Count 165 Thou/mm3 (140-440); RDW Standard Deviation 42.9 fL (35.1-43.9); Red Blood Count 4.28 Miln/mm3 (4.50-5.90); White Blood Count 9.3 Thou/mm3 (3.8-10.6)
[2025-07-01] MEDS: HYDROcodone/APAP 5/325 TABLET 1 TAB PO ×2 (14:57→18:28)
[2025-07-01 14:58] VITALS: BP 131/75; PULSE 90
[2025-07-01 15:01] LABS: Alanine Aminotransferase 13 U/L (10-49); Albumin, Serum 4.4 gm/dL (3.4-4.8); Albumin/Globulin Ratio 1.9 (1.2-2.2); Alkaline Phosphatase 73 U/L (46-116); Anion Gap 10 (7-16); Aspartate Amino Transferase 22 U/L (0-34); BUN/Creatinine Ratio 19 Ratio (12-20); Bilirubin,Total 0.8 mg/dL (0.3-1.2); Blood Urea Nitrogen 15 mg/dL (9-23); Calcium 9.2 mg/dL (8.3-10.6); Calcium (Corrected) 9.2 mg/dL (8.5-10.1); Carbon Dioxide 24.3 mMol/L (20.0-31.0); Chloride 106 mMol/L (98-107); Creatinine (Component) 0.8 mg/dL (0.6-1.3); Estimated Creatinine Clearance 123.9 mL/min (>60); Globulin 2.3 gm/dL (2.3-3.5); Glucose 153 mg/dL (74-106); Osmolality,Calculated 283 (275-295); Potassium 3.9 mMol/L (3.4-5.1); Sodium 140 mMol/L (136-145); Total Protein 6.7 gm/dL (5.7-8.2); eGFR > 60 See Note
[2025-07-01 15:06] LABS: B-Type Natriuretic Peptide 108 pg/mL (0-100)
--- NOTE | 2025-07-01 16:15 | PC.NURSE ---
nax1 at this time.
--- NOTE | 2025-07-01 17:02 | PC.NURSE ---
WAS TOLD BY VISITOR IN THE LOBBY THAT SOMEONE IN BATHROOM NEEDED HELP. WENT TO [facility] IN [facility] AND FOUND PT STANDING IN DOORWAY WITH NO PANTS OR UNDERWEAR ON. TOOK 3 MINUTES TO GET PT TO GO BACK INTO BATHROOM SO NURSE COULD SHUT DOOR. PT WAS VERY RESISTENT TO GOING BACKIN THE BATHROOM AND KEPT SAYING WHEN AM I GOING TO BE SEEN BY A DOCTOR. EXPLAINED TO PT MULTIPLE TIMES THAT HE WAS SEEN RIGHT AFTER HE ARRIVED BY AMBULANCE TODAY. PT CONTINUES TO ASK WHEN WILL I BE SEEN, AND SO WHAT AM I WAITING FOR/ REPEATED MULTIPLE TIMES THAT HE WAS SEEN BY PROVIDER AND WAITING ON TESTS TO BE FINISHED. TOOK 3-4 MINUTES TO GET PT TO PUT UNDERWEAR BACK ON. TOLD PT TO WAIT IN THE BATHROOM WHILE NURSE WENT TO SEE IF [employer] HAD PANTS. ABLE TO GET LARGE SIZD SHORTS FROM [employer] AND HELPED PT PUT THEM ON. INFORMED CHARGE NURSE OF WHAT WAS HAPPENING. TOTAL TIME 20-25 MINUTES
[2025-07-01] MEDS: DOXYCYCLINE 100 MG TABLET PO (18:28)
[2025-07-01 18:30] VITALS: PULSE 78; RESP 16; O2SAT 99
== END 2025-07-01 18:31 | disposition home or self-care (01) ==
PROVIDERS: Nurse Practitioner Family; Emergency Provider Nurse Practitioner Primary Care; PCP Family Medicine
DX: L03.115 Cellulitis of right lower limb (principal); E11.9 Type 2 diabetes mellitus without complications; G89.29 Other chronic pain; I11.0 Hypertensive heart disease with heart failure
CPT/HCPCS: 36415; 80053; 81001; 83880; 85025; 93005; 93970; 99283; A9270